=== PATIENT | female | born 1995 | race Caucasian/White ===

== ENCOUNTER 2017-05-04 06:45 | Emergency (ER) | payer OTHER ==
[~2017-05-04] VITALS: Ht 165.1 cm; Wt 72.6 kg
[2017-05-04] MEDS ORDERED: ONDA4TAB7 PO (07:12)
[2017-05-04] MEDS ORDERED: AZIT250T PO (07:12)
[2017-05-04] MEDS ORDERED: ACET325T9 PO (07:12)
--- NOTE | 2017-05-04 07:12 | PHYS DOC ---
Past History Past Medical History: No Pertinent History Past Surgical History: No Surgical History Alcohol Use: Rarely Drug Use: None Adult General Chief Complaint Chief Complaint: headache HPI HPI 21-year-old female presenting to the emergency department today with headache. She describes a pressure in the front sinuses and feels that she has a "sinus infection". The pain is mild to moderate nonradiating and intermittent. She is also noted green discharge with blowing her nose. She has a slight cough as well. She denies abdominal pain polyuria or dysuria. She has had nausea with a few episodes of vomiting overnight. Review of systems: She denies neck stiffness confusion lethargy weakness numbness tingling or focal neurologic deficit. All other review of systems is negative unless otherwise noted in history of present illness. Pertinent physical exam findings showed a well-appearing 21-year-old female with normal range of motion of the neck. Negative Brudzinski sign. Negative Kernig sign. Normal neurologic exam. Lungs were clear to auscultation. Abdomen is soft nontender. ED course: 21-year-old female presenting to the emergency department with signs and symptoms suggestive of a sinus headache. She was tachycardic in our emergency department. Likely secondary to dehydration. IV fluids administered which improved her heart rate. Blood work obtained. Chest x-ray obtained along with urinalysis. Chest x-ray shows left lower lobe pneumonia. elevated wbc present. The patient was then discharged home in stable condition to follow up with their primary care physician over the next 2-3 days. They were to return if their symptoms worsened or if they were concerned for any reason. Face-to- face discharge instructions and return precautions were given. Patient's questions were answered to their satisfaction. Patient is comfortable plan. Review of Systems Review of Systems SEE ABOVE. Physical Exam Physical Exam Constitutional: Well developed, well nourished, no acute distress, non-toxic appearance. HENT: Normocephalic, atraumatic, bilateral external ears normal, oropharynx moist, no oral exudates, nose normal. Mouth tenderness to percussion of the sinuses. Eyes: PERRLA, EOMI, conjunctiva normal, no discharge. Neck: Normal range of motion, no tenderness, supple, no stridor. [] Cardiovascular:Heart rate regular rhythm, no murmur Lungs & Thorax: Bilateral breath sounds clear to auscultation Abdomen: Bowel sounds normal, soft, no tenderness, no masses, no pulsatile masses. [] Skin: Warm, dry, no erythema, no rash. Back: No tenderness, no CVA tenderness. Extremities: No tenderness, no cyanosis, no clubbing, ROM intact, no edema. [] Neurologic: Alert and oriented X 3, normal motor function, normal sensory function, no focal deficits noted. Psychologic: Affect normal, judgement normal, mood normal. [] EKG EKG [] Radiology/Procedures Radiology/Procedures [] Course & Med Decision Making Course & Med Decision Making Pertinent Labs and Imaging studies reviewed. (See chart for details) [] Dragon Disclaimer Dragon Disclaimer This chart was dictated in whole or in part using Voice Recognition software in a busy, high-work load, and often noisy Emergency Department environment. It may contain unintended and wholly unrecognized errors or omissions. Departure Departure: Impression: Primary Impression: Pneumonia Additional Impressions: Sinus infection Acute sinus infection Dehydration Disposition: HOME, SELF-CARE Condition: STABLE Referrals: JUAN MIGUEL ROPER MD Patient Instructions: Sinusitis, [id number] Additional Instructions: Thank you for allowing us to participate in your care today. Followup with your primary care physician in 3 days if your symptoms do not improve. If you do not have a primary care provider you can ask for a list of our primary care providers. Return to the emergency department you have any new or concerning findings. This should be evaluated by the primary care physician and any necessary consulting services for continued management within a few days after discharge. Return to emergency room if you have any new or concerning symptoms including but not limited to fever, chills, nausea, vomiting, intractable pain, any new rashes, chest pain, shortness of air, uncontrolled bleeding, difficulty breathing, and/or vision loss. Scripts Acetaminophen (TYLENOL) 325 Mg Tablet 1 TAB PO PRN Q4HRS, #10 TAB Prov: ALYSE CHACKO MD 05/04/17 Ondansetron Hcl (ZOFRAN) 4 Mg Tablet 1 TAB PO PRN Q6HRS Y for NAUSEA, #6 TAB Prov: ALYSE CHACKO MD 05/04/17 Azithromycin (ZITHROMAX) 250 Mg Tablet 1 PKG PO UD, #1 PKG Prov: ALYSE CHACKO MD 05/04/17 Problem Qualifiers Primary Impression: Pneumonia Pneumonia type: due to unspecified organism Laterality: left Lung location : lower lobe of lung Qualified Codes: J18.1 - Lobar pneumonia, unspecified organism ALYSE CHACKO MD May 04, 2017 07:12
[2017-05-04] MEDS ORDERED: ACETAMINOPHEN 325 MG TABLET PO ONE (07:15)
[2017-05-04] MEDS ORDERED: IV NORMAL SALINE 1,000ML 1,000 ML IV ONE (07:15)
--- NOTE | 2017-05-04 07:29 | RAD ---
Indication: Cough and fever for 3 days. No prior studies are available for comparison. The heart size is normal. There is minimal patchy infiltrate identified in the left base. The right lung is clear. No effusion or pneumothorax is detected. Impression: Patchy left basilar pneumonia.
[2017-05-04 07:42] LABS: PREG TEST PT QUAL NEGATIVE (NEG)
[2017-05-04 07:58] LABS: BACTERIA,URINE FEW /HPF (0-FEW); BILIRUBIN,URINE NEG (NEG); CLARITY,URINE HAZY; COLOR,URINE AMBER; GLUCOSE,URINE NEG (NEG); NITRITE,URINE NEG (NEG); SQUAMOUS EPITHELIAL CELL,UR MOD /LPF; UROBILINOGEN,URINE 8 mg/dL (0.2 mg/dL)
[2017-05-04 08:05] LABS: BASO # 0.1 x10^3/uL (0.0-0.2); BASO % 1 % (0-3); EOS % 0 % (0-3); HEMATOCRIT 36.8 % (36.0-47.0); HEMOGLOBIN 12.5 g/dL (12.0-15.5); LYMPH # 1.5 x10^3/uL (1.0-4.8); LYMPH % 12 % (24-48); MEAN CORPUSCULAR HEMOGLOBIN 29 pg (25-35); MEAN CORPUSCULAR HGB CONC 34 g/dL (31-37); MEAN CORPUSCULAR VOLUME 84 fL (79-100); MONO % 8 % (0-9); NEUT # 10.3 x10^3uL (1.8-7.7); NEUT % 80 % (31-73); PLATELET COUNT 233 x10^3/uL (140-400); RED BLOOD COUNT 4.38 x10^6/uL (3.50-5.40); RED CELL DISTRIBUTION WIDTH 14.2 % (11.5-14.5); WHITE BLOOD COUNT 12.9 x10^3/uL (4.0-11.0)
[2017-05-04 08:06] LABS: ALBUMIN 3.6 g/dL (3.4-5.0); CALCIUM 9.1 mg/dL (8.5-10.1); CREATININE 0.7 mg/dL (0.6-1.0); DIRECT BILIRUBIN 0.2 mg/dL (0.0-0.2); GFR 104.6; POTASSIUM 3.6 mmol/L (3.5-5.1); TOTAL BILIRUBIN 0.6 mg/dL (0.2-1.0); TOTAL PROTEIN 8.2 g/dL (6.4-8.2)
[2017-05-04 08:29] VITALS: BP 116/80
--- NOTE | 2017-05-04 10:57 | EKG ---
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 RI6.01 Unconfirmed report No previous ECG available for comparison Electronically Signed On 05-08-2017 9:39:33 CDT by Armando Del Cid
== END 2017-05-04 08:29 | disposition home or self-care (01) ==
LOC: ER 06:45
DX: J18.1 Lobar pneumonia, unspecified organism (principal); J01.90 Acute sinusitis, unspecified; E86.0 Dehydration
CPT/HCPCS: 36415; 71010; 80048; 80076; 81001; 83690; 84703; 85027; 87086; 87186; 93005; 96360; 96361; 99285-25; J7030

== ENCOUNTER 2018-06-14 14:55 | Emergency (ER) | payer BC, OTHER ==
[~2018-06-14] VITALS: Ht 162.6 cm; Wt 83.9 kg
[~2018-06-14 14:55] MED LIST: ACET325T9 PO; AZIT250T PO; ONDA4TAB7 PO
[2018-06-14 15:26] VITALS: BP 139/79
[2018-06-14] MEDS ORDERED: traMADol 50 MG TABLET PO ONE (16:00)
[2018-06-14 16:40] LABS: BILIRUBIN,URINE NEG (NEG); CLARITY,URINE HAZY; COLOR,URINE YELLOW; GLUCOSE,URINE NEG (NEG)
[2018-06-14 16:41] LABS: NITRITE,URINE NEG (NEG); UROBILINOGEN,URINE 1 mg/dL (0.2 mg/dL)
[2018-06-14] MEDS ORDERED: CYCL-331 PO (16:44)
[2018-06-14] MEDS ORDERED: TRAM-48 PO (16:44)
[2018-06-14] MEDS ORDERED: METH4TAB2 PO (16:44)
--- NOTE | 2018-06-14 16:44 | PHYS DOC ---
Past History Past Medical History: Asthma Past Surgical History: No Surgical History Smoking: Non-smoker Alcohol Use: None Drug Use: None Adult General Chief Complaint Chief Complaint: BACK INJURY HPI HPI 22-year-old female patient complaining of right lower back pain for the last 2 weeks that getting worse for the last 2 days as a constant and sharp pain that getting worse with activity. And cough numbness of right foot for the last couple days document and bowel incontinence, fever and chills, nausea and vomiting, abdominal pain, urinary symptoms. Patient states she has had low back pain since she was a child and her pain did not getting better with taking over- the-counter Tylenol. Review of Systems Review of Systems Constitutional: Denies fever or chills [] Eyes: Denies change in visual acuity, redness, or eye pain [] HENT: Denies nasal congestion or sore throat [] Respiratory: Denies cough or shortness of breath [] Cardiovascular: No additional information not addressed in HPI [] GI: Denies abdominal pain, nausea, vomiting, bloody stools or diarrhea [] : Denies dysuria or hematuria [] Musculoskeletal: Denies joint pain reports back pain[] Integument: Denies rash or skin lesions [] Neurologic: Denies headache, focal weakness , reports sensory changes [] Endocrine: Denies polyuria or polydipsia [] All other systems were reviewed and found to be within normal limits, except as documented in this note. Current Medications Current Medications Current Medications Medications (Trade) Dose Ordered Sig/Bouchra Start Time Stop Time Status Last Admin Dose Admin Tramadol HCl (Ultram) 50 mg 1X ONCE 06/14/18 16:00 06/14/18 16:01 DC 06/14/18 16:05 50 MG Allergies Allergies Allergies Coded Allergies Type Severity Reaction Last Updated Verified diphenhydramine Allergy Mild RASH 06/14/18 Yes latex Allergy Unknown 05/04/17 Yes Physical Exam Physical Exam Constitutional: Well developed, well nourished, mild distress, non-toxic appearance. [] HENT: Normocephalic, atraumatic Eyes: PERRLA, EOMI, conjunctiva normal, no discharge. [] Neck: Normal range of motion, no tenderness, supple, no stridor. [] Cardiovascular:Heart rate regular rhythm, no murmur [] Lungs & Thorax: Bilateral breath sounds clear to auscultation [] Abdomen: Bowel sounds normal, soft, no tenderness, no masses, no pulsatile masses. [] Skin: Warm, dry, no erythema, no rash. [] Back: No midline tenderness, no deformity, no CVA tenderness, limited range of motion of lumbar spine secondary to the pain Extremities: No tenderness, no cyanosis, no clubbing, ROM intact, no edema. [] Neurologic: Alert and oriented X 3, normal motor function, subjective decrease of sensation in right foot, normal reflexes, no focal deficits noted. [] Psychologic: Affect normal, judgement normal, mood normal. [] Current Patient Data Vital Signs Vital Signs Date Time Temp Pulse Resp B/P (MAP) Pulse Ox O2 Delivery O2 Flow Rate FiO2 06/14/18 16:05 18 06/14/18 15:26 97.8 129 99 Room Air Lab Results Laboratory Tests Test 06/14/18 15:22 POC Urine HCG, Qualitative hcg negative (Negative) EKG EKG [] Radiology/Procedures Radiology/Procedures [] Course & Med Decision Making Course & Med Decision Making Pertinent Labs reviewed. (See chart for details) Dilution of patient in ER showed 22-year-old female patient with complaining of low back pain for 2 weeks that patient back of her thigh and numbness of foot. Patient had unremarkable physical exam except for decrease of lumbar spine motion and subjective paresthesia of right foot. UA was unremarkable. Plan discharge patient home with diagnosis of sciatica. Dragon Disclaimer Dragon Disclaimer This electronic medical record was generated, in whole or in part, using a voice recognition dictation system. Departure Departure: Impression: Primary Impression: Sciatica of right side Disposition: HOME, SELF-CARE (At 1645) Condition: IMPROVED Referrals: RIMMA MENEZES MD (PCP) Patient Instructions: Sciatica Additional Instructions: Apply ice on your back Follow-up with your primary care physician in 3-5 days Return to ER if not getting better Scripts Tramadol Hcl (ULTRAM) 50 Mg Tablet 50 MG PO PRN Q6HRS PRN for PAIN, #14 TAB Prov: SANJAY KRAMER MD 06/14/18 Cyclobenzaprine Hcl (CYCLOBENZAPRINE HCL) 10 Mg Tablet 1 TAB PO TID, #30 TAB Prov: SANJAY KRAMER MD 06/14/18 Methylprednisolone (MEDROL) 4 Mg Tab.ds.pk 1 PKG PO UD, #1 PKG Prov: SANJAY KRAMER MD 06/14/18 SANJAY KRAMER MD Jun 14, 2018 16:44
== END 2018-06-14 16:46 | disposition home or self-care (01) ==
LOC: ER 14:55
DX: M54.41 Lumbago with sciatica, right side (principal); R20.0 Anesthesia of skin; J45.909 Unspecified asthma, uncomplicated; Z88.8 Allergy status to other drugs, medicaments and biological substances; Z91.040 Latex allergy status
CPT/HCPCS: 81003; 81025; 99283

== ENCOUNTER → 2018-08-26 | Outpatient (CLI) | payer BC ==
[2018-06-14 16:46] VITALS: BP 139/77
[~2018-08-26] MED LIST changes: +CYCL-331 PO; +METH4TAB2 PO; +TRAM-48 PO
--- NOTE | 2018-08-26 09:29 | RAD ---
Abdominal ultrasound, 08/26/2018: HISTORY: Right upper quadrant pain There are prominent echoes in the gallbladder fossa with posterior acoustic shadowing. The findings suggest multiple gallstones in the gallbladder with associated shadowing obscuring its posterior read. Its anterior wall is not thickened. The common hepatic duct measures 5-6 mm. There is no evidence of a hepatic mass or intrahepatic bile duct dilatation. The visualized portions of the pancreatic body are unremarkable. Other portions of the pancreas were obscured by overlying bowel. The aorta and inferior vena cava are unremarkable. The spleen is near the upper limits of normal in size measuring 12 cm in craniocaudad extent. No renal abnormality is detected. No free fluid is evident in the abdomen. IMPRESSION: Cholelithiasis Electronically signed by: Marlon Pearson MD (08/26/2018 9:25 AM) [facility]
== END | disposition home or self-care (01) ==
LOC: US 07:52
PROVIDERS: ATTEND Family Medicine
DX: K80.20 Calculus of gallbladder without cholecystitis without obstruction (principal); J45.909 Unspecified asthma, uncomplicated; Z88.8 Allergy status to other drugs, medicaments and biological substances
CPT/HCPCS: 76700

== ENCOUNTER 2019-04-08 12:06 | Emergency (ER) | payer BC ==
[~2019-04-08] VITALS: Ht 162.6 cm; Wt 83.9 kg
[2019-04-08 12:19] VITALS: BP 156/97
[2019-04-08] MEDS ORDERED: CYCL-331 PO (12:42)
--- NOTE | 2019-04-08 13:03 | PHYS DOC ---
Past History Past Medical History: No Pertinent History Past Surgical History: No Surgical History Smoking: Non-smoker Alcohol Use: None Drug Use: None Adult General Chief Complaint Chief Complaint: BACK PAIN OR INJURY [facility] HPI Patient is a 23 old female was presenting with chief complaint of upper back and neck pain she's had this on and off for a month it all started back in November when she was at work she heard a pop in her right shoulder when she was lifting something she's had an EMG which was normal she supposed to get further follow- up including physical therapy but she has not done so. Pain is now more in her scapular area gets worse when she lifts up her shoulder when she moves her neck from side to side it is sharp pains stabbing shooting up from her neck up to the back of her head now. Using Motrin with minimal relief she wants a note for work. Review of Systems Review of Systems Constitutional: Denies fever or chills [] Cardiovascular: No additional information not addressed in [facility] [] GI: Denies abdominal pain, nausea, vomiting, bloody stools or diarrhea [] All other systems were reviewed and found to be within normal limits, except as documented in this note. Allergies Allergies Allergies Coded Allergies Type Severity Reaction Last Updated Verified diphenhydramine Allergy Mild RASH 06/14/18 Yes latex Allergy Unknown 05/04/17 Yes Physical Exam Physical Exam Constitutional: Well developed, well nourished, no acute distress, non-toxic appearance. [] HENT: Normocephalic, atraumatic, bilateral external ears normal, oropharynx moist, no oral exudates, nose normal. [] Eyes: PERRLA, EOMI, conjunctiva normal, no discharge. [] Neck: Normal range of motion, no tenderness, supple, no stridor. [] Pulmonary: Normal respiratory effort no increased work of breathing no obvious c hest wall trauma Abdomen: Bowel sounds normal, soft, no tenderness, no masses, no pulsatile masses. [] Skin: Warm, dry, no erythema, no rash. [] Back: There is tenderness to palpation in the upper back lateral sort of T3 area just above the scapular margin radiates up to the neck pain is reproducible with movement of the neck. Extremities: No tenderness, no cyanosis, no clubbing, ROM intact, no edema. [] Neurologic: Alert and oriented X 3, normal motor function, normal sensory function, no focal deficits noted. [] Psychologic: Affect normal, judgement normal, mood normal. [] Current Patient Data Vital Signs Vital Signs Date Time Temp Pulse Resp B/P (MAP) Pulse Ox O2 Delivery O2 Flow Rate FiO2 04/08/19 12:19 98.0 112 16 98 Room Air EKG EKG [] Radiology/Procedures Radiology/Procedures [] Course & Med Decision Making Course & Med Decision Making Pertinent Labs and Imaging studies reviewed. (See chart for details) []Musculoskeletal type midthoracic lateral pain radiation to the neck suspect a muscle strain and muscle spasm type of pain. Try muscle relaxant follow-up with workman's comp for further management. Dragon Disclaimer Dragon Disclaimer This electronic medical record was generated, in whole or in part, using a voice recognition dictation system. Departure Departure: Impression: Primary Impression: Back pain Disposition: HOME, SELF-CARE Condition: STABLE Referrals: RIMMA MENEZES MD (PCP) Patient Instructions: Muscle Strain Scripts Cyclobenzaprine Hcl (CYCLOBENZAPRINE HCL) 10 Mg Tablet 1 TAB PO TID PRN for PAIN, #20 TAB Prov: ROCAEL DAVISON MD 04/08/19 ROCAEL DAVISON MD April 08, 2019 13:03
== END 2019-04-08 13:55 | disposition home or self-care (01) ==
LOC: ER 12:56
DX: M54.6 Pain in thoracic spine (principal); M54.2 Cervicalgia; Z88.8 Allergy status to other drugs, medicaments and biological substances; Z91.040 Latex allergy status
CPT/HCPCS: 99283